=== PATIENT | male | born 1945 | race Caucasian/White ===

== ENCOUNTER 2019-05-13 07:32 | Observation (INO) ==
[2019-04-16 14:27] LABS: Basophils # (auto) 0.01 K/uL (0-0.2); Basophils % (auto) 0.2 %; Eosinophils # (auto) 0.09 K/uL (0-0.5); Eosinophils % (auto) 1.7 %; Hematocrit (blood only) 43.5 % (42-52); Hemoglobin 15.3 g/dL (14.0-18.0); Immature Granulocytes # (auto) 0.03 K/uL (0.00-0.02); Immature Granulocytes % (auto) 0.6 %; Lymphocytes # (auto) 1.36 K/uL (1.2-3.4); Lymphocytes % (auto) 26.1 %; Mean Corpuscular Hemoglobin 32.7 pg (25-34); Mean Corpuscular Hgb Conc 35.2 g/dL (32-36); Mean Corpuscular Volume 92.9 fL (80-100); Mean Platelet Volume 10.8 fL (7.4-10.4); Monocytes # (auto) 0.41 K/uL (0.11-0.59); Monocytes % (auto) 7.9 %; Neutrophils # (auto) 3.31 K/uL (1.4-6.5); Neutrophils % (auto) 63.5 %; Platelet Count 205 K/uL (130-400); RDW Coefficient of Variation 13.2 % (11.5-14.5); RDW Standard Deviation 44.8 fL (36.4-46.3); Red Blood Count 4.68 M/uL (4.7-6.1); White Blood Count 5.21 K/uL (4.8-10.8)
[2019-04-16 14:44] LABS: INR 1.1 (0.9-1.1); Partial Thromboplastin Ratio 0.9; Partial Thromboplastin Time 25.1 Seconds (21.0-31.0)
[2019-04-16 14:54] LABS: BUN Creatinine Ratio 20.8 (10-20); Blood Urea Nitrogen 20 mg/dl (7-18); Calcium 9.2 mg/dl (8.5-10.1); Carbon Dioxide 30 mmol/L (21-32); Chloride 106 mmol/L (98-107); Est GFR (African American) 89.5; Est GFR (Non-African American) 77.3; Glucose 92 mg/dl (70-99); Potassium 4.3 mmol/L (3.5-5.1); Sodium 140 mmol/L (136-145)
--- NOTE | 2019-04-18 13:58 | Anesthesiology Consultation ---
Date of Service April 18, 2019 Assessment & Plan (1) Encounter for pre-operative examination: Chart Review Chart Review: Acceptable Risk for Surgery Consults Requested none History Surgery Operation Date: 05/13/19 07:30 Proposed Procedures p L2-L5 Laminectomy - Jonathan Rivas DO Height/Weight Height: 6 ft 1 in Weight: 103.419 kg Allergies Allergy/AdvReac Type Severity Reaction Status Date / Time No Known Allergies Allergy Verified 04/17/19 15:13 Medications Home Medications Medication Instructions Recorded Confirmed Last Taken methylprednisolone 4 mg tablets in 4 mg PO UD #1 pkt 04/16/19 04/17/19 Unknown a dose pack ibuprofen [Advil] 400 mg PO BID 04/17/19 04/17/19 Unknown metoprolol succinate 100 mg PO QPM 04/17/19 04/17/19 Unknown [id number]-[id number] 1 tab PO QAM 04/17/19 04/17/19 Unknown [Multivitamin 50 Plus] simvastatin 10 mg PO Q OTHER DAY 04/17/19 04/17/19 Unknown Past Medical History Medical History Hypertension Spinal stenosis Weakness IN LEGS D/T PINCHED NERVE IN BACK Past Surgical History Surgical History Hx of cardiac cath 15 YR AGO - [facility] Hx of cholecystectomy Social History Smoking Status: Former smoker Do You Dip or Chew Tobacco: No Smoking End Date: 35 YR AGO Hx Alcohol Use: Yes Alcohol type: hard liquor alcohol intake frequency: 0-2 drinks per day Hx Substance Use: No Testing Laboratory Results 04/16/19 13:29 04/16/19 13:29 PT 11.0 Seconds (9.0-12.0) 04/16/19 13:29 INR 1.1 (0.9-1.1) 04/16/19 13:29 APTT 25.1 Seconds (21.0-31.0) 04/16/19 13:29 Electrocardiogram Date: 04/16/19 Findings: + NSR @ (68/min. NSIVCD.) and + poor R wave progression Chest X-Ray Date: 04/16/19 Findings: + NAD
--- NOTE | 2019-05-08 13:11 | History and Physical Report ---
DATE OF ADMISSION: 05/13/2019 CHIEF COMPLAINT: Low back pain, lower extremity difficulty, paresthesias. WORKING DIAGNOSES: Spinal stenosis and neurogenic claudication. PAST MEDICAL HISTORY: Positive for hypertension, usual childhood diseases. No heart disease, diabetes, or mitral valve issues. No anxiety, depression, or high cholesterol. PAST SURGICAL HISTORY: Cholecystectomy. ALLERGIES: Negative. FAMILY HISTORY: Heart disease. SOCIAL HISTORY: . Moderate alcohol, no tobacco. Active lifestyle. One child. TWELVE-SYSTEM REVIEW: No fevers, sweats or chills. No bowel and bladder issues. Ear, nose and throat negative. No chest pain or palpitations. No asthma, wheezing, shortness of breath. No nausea, vomiting, urgency, or frequency. Denies memory loss or confusion. Admits to some tingling, joint pain and weakness. MEDICATIONS: Metoprolol, Lipitor, Advil, multivitamin. OBJECTIVE: GENERAL: He is 6 feet 4 inches. He is 225 pounds. He is in no terrible distress, alert, oriented. VITAL SIGNS: Blood pressure 130/80, pulse 80, respirations 16. HEENT: Pupils react to light and accommodation. Ear, nose and throat clear. CARDIAC: S1, S2, no S3. LUNGS: Clear to auscultation. No rales, rhonchi, or wheezing. ABDOMEN: Soft, nontender, no referred pain. NEUROLOGIC: Intact with adequate motor strength and sensation. IMAGES: Demonstrate profound stenosis of the spine. PLAN: Includes a lumbar spine laminectomy, L2-L5 lumbar spine.
[~2019-05-13 07:32] MED LIST: CEFAZOLIN 2000MG 2,000 MG/15 ML SYR IV SCH; LR 15ML/HR IV SCH; SODIUM CHLORIDE 0.9% 1,000 ML IV SCH
[2019-05-13] MEDS ORDERED: fentaNYL citrate 100 MCG/2 ML VIAL ONE (08:27)
[2019-05-13] MEDS ORDERED: MIDAZOLAM HCL 1 MG/ML 2ML VIAL ONE (08:27)
[2019-05-13] MEDS ORDERED: ATROPINE SULFATE 0.1 MG/ML 10ML SYR IV PRN (08:46)
[2019-05-13] MEDS ORDERED: fentaNYL citrate 100 MCG/2 ML VIAL IV PRN (08:46)
[2019-05-13] MEDS ORDERED: HYDROmorphone INJ 1 MG/ML SYRINGE IV PRN ×2 (08:46→14:10)
[2019-05-13] MEDS ORDERED: ONDANSETRON INJ 2 MG/ML 2 ML VIAL IV PRN ×2 (08:46→14:10)
[2019-05-13] MEDS ORDERED: ePHEDrine sulfate 50 MG/ML AMP IV PRN (08:46)
[2019-05-13] MEDS ORDERED: THROMBIN FOR SOLN 20000 UNIT KIT ONE (10:50)
[2019-05-13] MEDS ORDERED: VANCOMYCIN HCL 1000MG/20ML VIAL ONE (10:50)
[2019-05-13] MEDS ORDERED: GELATIN SPONGE SZ 100 ONE (10:50)
[2019-05-13] MEDS ORDERED: BACITRACIN INJ 50,000 UNIT VIAL ONE (10:50)
[2019-05-13] MEDS ORDERED: EPINEPHrine INJ 1 MG/ML AMP ONE (10:51)
[2019-05-13] MEDS ORDERED: BUPIVACAINE 0.5 % 5 MG/1 ML MPF 30ML VIAL ONE (10:51)
--- NOTE | 2019-05-13 10:54 | History & Physical Bridge Note ---
Date of Service May 13, 2019 History & Physical Bridge Note I have examined the patient, reviewed the History & Physical and in the interval since the performance of the History & Physical I have noted the following changes of clinical significance: no changes noted
[2019-05-13] MEDS ORDERED: HYDROmorphone INJ 2 MG/ML SYR/VIAL ONE (11:23)
[2019-05-13] MEDS ORDERED: NEOSTIGMINE METHYLSULFATE 5 MG/5 ML SYR ONE (11:32)
[2019-05-13] MEDS ORDERED: LIDOCAINE HCL 2% 2 ML VIAL/AMP(20MG/ML) INFIL ONE (11:32)
[2019-05-13] MEDS ORDERED: PROPOFOL IV EMULSION 10 MG/ML 20 ML VIAL IV ONE (11:32)
[2019-05-13] MEDS ORDERED: LARYING-O-JET KIT (LTA) ONE (11:32)
[2019-05-13] MEDS ORDERED: DEXAMETHASONE SOD INJ 4 MG/ML VIAL ONE (11:32)
[2019-05-13] MEDS ORDERED: PHENYLEPHRINE 100MCG/ML 5ML SYR ONE (11:32)
[2019-05-13] MEDS ORDERED: ONDANSETRON INJ 2 MG/ML 2 ML VIAL ONE (11:32)
[2019-05-13] MEDS ORDERED: ePHEDrine sulfate 50 MG/ML SYR ONE (11:32)
[2019-05-13] MEDS ORDERED: ROCURONIUM BROMIDE 10 MG/ML 5 ML VIAL ONE (11:32)
[2019-05-13] MEDS ORDERED: GLYCOPYRROLATE 0.2 MG/ML VIAL ONE (11:32)
--- NOTE | 2019-05-13 13:00 | Post Operative Brief Note ---
PG Immediate Post Op with CF Date of Surgery May 13, 2019 Pre & Post Diagnosis Operation Date: 05/13/19 09:50 Pre-Op Diagnosis: Spinal Stenosis Post-Op Diagnosis: Spinal Stenosis I identified the patient and participated in the time-out.: Yes Procedure Operation Date: 05/13/19 09:50 Actual Procedures p L2-L5 Laminectomy(Not Applicable) - Jonathan Rivas DO Surgeon Jonathan Rivas DO Sawmill Equipment Operator Heri Liriano minor Estimated Blood Loss 200 Findings Consistent with Post-Op Diagnosis Severe spinal stenosis Fluids Per anesthesia Specimens Specimen Description: None per surgeon Drains Hemovac Drain Anesthesia Type General Disposition Accompanied Patient To Recovery: Yes Overlapping Procedure I was immediately available: during the entire case.
--- NOTE | 2019-05-13 13:03 | Operative Report ---
PG Post Operative Report Pre & Post Diagnosis Operation Date: 05/13/19 09:50 Pre-Op Diagnosis: Spinal Stenosis Post-Op Diagnosis: Spinal Stenosis I identified the patient and participated in the time-out.: Yes Procedure Operation Date: 05/13/19 09:50 Actual Procedures p L2-L5 Laminectomy(Not Applicable) - Jonathan Rivas DO Surgeon Jonathan Rivas DO Roofing Machine Tender Heri Liriano minor Estimated Blood Loss 200 Findings Consistent with Post-Op Diagnosis Specimens None Anesthesia Type General Indications Severe spinal stenosis Description of Procedure Patient was taken to the operating a general intubated anesthetic provided patient. Matthew catheter administered. Placed prone in Vinicio table. Scrubbed prepped draped sterile Formal timeout provided Skin incision fashion incision dissecting the soft tissue in the same plane. We put in a deep self-retaining retractor both the lamina and the medial portion of the facet joints. Performed a classic decompression of the neural elements. Starting at L5-S1. We used Dwight Medleyksell rongeur's high-speed bur various techniques to unroofed the lamina. We provided foraminotomies at all levels. I was very pleased with the decompression of the patient. We did not destabilize any neural elements or scoliosis issues. We irrigated thoroughly close fascia the fascia over vancomycin powder and Gelfoam. We also closed over Hemovac drain. We closed with 1 Vicryl suture 2 oh in a subcuticular layer was closed with staple gun on the skin. Sponge needle count correct at the close Estimated blood loss 200 cc No complications No bone graft used I attest to the content of the Intraoperative Record and any orders documented therein. Any exceptions are noted below.
--- NOTE | 2019-05-13 13:52 | Anesthesiology Progress Note ---
Date of Service May 13, 2019 Anesthesia Post Procedure Vital Signs Vital Signs: Temp Pulse Pulse Resp BP Pulse Ox 05/13/19 13:30 36.4 C L 61 14 115/60 98 05/13/19 13:25 36.4 C L 60 14 120/70 98 05/13/19 13:15 69 14 126/66 98 05/13/19 13:05 67 14 132/94 99 05/13/19 12:55 36.6 C 78 17 136/65 99 05/13/19 08:15 36.5 C 76 18 156/90 H 95 Pain Intensity Bilateral Leg: Pain Intensity: 7 Transfer of Care Handoff Completed per policy Notes Mental Status: alert / awake / arousable and participated in evaluation Patient Amnestic to Procedure: Yes Nausea / Vomiting: adequately controlled Pain: adequately controlled Airway Patency, RR, SpO2: stable & adequate BP & HR: stable & adequate Hydration State: stable & adequate Anesthetic Complications: no major complications apparent and Pt Satisfied with anesthetic care
[2019-05-13] MEDS ORDERED: ACETAMINOPHEN 1,000 MG/100 ML VIAL IV PRN (14:10)
[2019-05-13] MEDS ORDERED: LACTATED RINGER'S 1,000 ML IV SCH (14:10)
[2019-05-13] MEDS ORDERED: OXYCODONE HCL IR 5 MG TAB (IMMEDIATE RELEASE) PO PRN (14:10)
[2019-05-13] MEDS ORDERED: MAGNESIUM HYDROXIDE SUSP 30 ML UDC PO PRN (14:10)
--- NOTE | 2019-05-13 14:11 | Fluoroscopy Report ---
FL spine 1V any level HISTORY: 73 years-old Male L2-L5 LAMI status post lumbar spinal fusion COMPARISON: Lumbar spine radiographs 04/16/2019 TECHNIQUE: One spot fluoroscopic image of the lumbar spine was obtained utilizing 2.8 seconds fluoros copy time FINDINGS: Metallic surgical devices are noted projecting over the posterior elements at L4 and also at L5-S1. M ultilevel spondylitic spurring with facet arthrosis and disc space narrowing redemonstrated. IMPRESSION: Fluoroscopic assistance as above. Please see operative report for further details. The above report was generated using voice recognition software. It may contain grammatical, syntax o r spelling errors. Electronically signed by: Jewel Osuna M.D. 05/13/2019 2:10 PM
[2019-05-13] MEDS: CEFAZOLIN 2000MG 2,000 MG/15 ML SYR IV SCH (18:15)
[2019-05-13] MEDS ORDERED: SIMVASTATIN 10 MG TAB PO SCH (20:00)
[2019-05-13] MEDS: METOPROLOL SUCC 50MG EXT REL TAB PO SCH (20:14)
[2019-05-14] MEDS: CEFAZOLIN 2000MG 2,000 MG/15 ML SYR IV SCH ×2 (02:04→11:18)
--- NOTE | 2019-05-14 08:08 | Anesthesiology Progress Note ---
Date of Service May 14, 2019 Anesthesia Post Procedure Vital Signs Vital Signs: Temp Pulse Pulse Pulse Resp BP Pulse Ox 05/14/19 06:57 36.9 C 69 16 147/82 H 96 05/14/19 04:24 36.8 C 85 16 125/73 97 05/13/19 23:51 36.6 C 82 16 132/70 96 05/13/19 20:13 36.5 C 88 18 140/70 98 05/13/19 17:14 36.5 C 75 18 125/70 98 05/13/19 16:00 36.4 C L 68 17 145/82 H 97 05/13/19 14:20 63 18 145/69 H 97 05/13/19 13:50 36.5 C 53 L 18 116/63 96 05/13/19 13:30 36.4 C L 61 14 115/60 98 05/13/19 13:25 36.4 C L 60 14 120/70 98 05/13/19 13:15 69 14 126/66 98 05/13/19 13:05 67 14 132/94 99 05/13/19 12:55 36.6 C 78 17 136/65 99 05/13/19 08:15 36.5 C 76 18 156/90 H 95 Pain Intensity Bilateral Leg: Pain Intensity: 7 Lower Back: Pain Intensity: 0 Notes Mental Status: alert / awake / arousable and participated in evaluation Patient Amnestic to Procedure: Yes Nausea / Vomiting: adequately controlled Pain: adequately controlled Airway Patency, RR, SpO2: stable & adequate BP & HR: stable & adequate Hydration State: stable & adequate Anesthetic Complications: no major complications apparent and Pt Satisfied with anesthetic care
[2019-05-14] MEDS: KETOROLAC TROMETHAMINE 15 MG/ML VIAL IV PRN ×2 (11:18→17:25)
[2019-05-14] MEDS: METOPROLOL SUCC 50MG EXT REL TAB PO SCH (21:10)
[2019-05-15] MEDS: KETOROLAC TROMETHAMINE 15 MG/ML VIAL IV PRN (06:13)
[2019-05-15] MEDS ORDERED: POLYETHYLENE (MIRALAX) 17 GM PACK PO SCH (09:00)
--- NOTE | 2019-05-15 09:10 | Discharge Summary ---
PREOPERATIVE AND ADMISSION DIAGNOSIS: Multilevel stenosis of the lumbar spine. POSTOPERATIVE AND DISCHARGE DIAGNOSIS: Multilevel stenosis of the lumbar spine. HOSPITAL COURSE: Cholo had an uneventful 48-hour stay here in the hospital, improved, stable this morning, better motion, decreased pain, good functional ability, walking independent. Pain controlled. Wound clean, dry, protected. No neurological deficits. No chest pain, shortness of breath. ASSESSMENT: Status post lumbar spine, multilevel laminectomy. PLAN: Home today. Instructions, precautions provided. Hopefully, home health can be initiated and medications have been called to his pharmacy.
== END 2019-05-15 09:35 | disposition home health service (06) ==
LOC: ASU 07:32 → 3E 07:32